=== PATIENT | female | born 1965 | race Caucasian/White ===

== ENCOUNTER 2019-10-30 16:30 | Outpatient (CLI) | payer OTHER, SELFPAY ==
--- NOTE | ~2019-10-30 | MM_ITS ---
EXAMINATION: MM screening mario BI w nyasia HISTORY: Screening mammogram TECHNIQUE: Craniocaudal and mediolateral oblique 3-D tomosynthesis images were obtained and synthetic 2-D images were generated. CAD analysis was submitted and interpreted. COMPARISON: 09/20/2018 BREAST PARENCHYMAL COMPOSITION: There are scattered areas of fibroglandular density. FINDINGS: There is no evidence of suspicious mass, calcification, or architectural distortion to sugg est malignancy in either breast. There has been no suspicious interval change. IMPRESSION: 1. No mammographic evidence of malignancy. 2. Recommend routine screening mammography in one year. BI-RADS Category 1: Negative Reviewed, dictated and finalized at location A.
== END 2019-10-30 16:31 | disposition home or self-care (01) ==
LOC: ANHIMG 16:33
PROVIDERS: PCP Family Medicine; Visit Provider Family Medicine
DX: Z12.31 Encounter for screening mammogram for malignant neoplasm of breast (principal)
CPT/HCPCS: 77063; 77067

== ENCOUNTER 2023-06-22 12:03 | Emergency (ER) | payer OTHER, SELFPAY ==
[2023-06-22 12:16] VITALS: BP 120/67; PULSE 93; RESP 18; TEMP 36.9; O2SAT 100
--- NOTE | 2023-06-22 12:20 | ED.GENADULT ---
HPI - General Adult General Chief complaint: Upper Respiratory Infection Stated complaint: Sore Throat/Sinus Source: patient, RN notes reviewed and old records reviewed Mode of arrival: ambulatory Limitations: no limitations History of Present Illness HPI narrative: 58-year-old female presents to [facility] with complaints of sore throat, and nasal congestion this started yesterday. Patient is not taking anything for symptoms. Patient denies any other complaints. Related Data Home Medications Medication Instructions Recorded Confirmed atorvastatin 40 mg tablet 40 mg PO DAILY 03/02/19 06/22/23 docusate sodium 100 mg capsule 100 mg PO DAILY 03/02/19 06/22/23 (Stool Softener) gabapentin 300 mg capsule 600 mg PO HS 03/02/19 06/22/23 glipizide 10 mg tablet 10 mg PO BID 03/02/19 06/22/23 losartan 25 mg tablet 25 mg PO DAILY 03/02/19 06/22/23 metformin 500 mg tablet 1,000 mg PO BID 03/02/19 06/22/23 diazepam 10 mg tablet 10 mg PO QID PRN Anxiety 03/05/19 06/22/23 quetiapine 300 mg tablet 300 mg PO DAILY 03/05/19 06/22/23 venlafaxine 37.5 mg tablet 37.5 mg PO DAILY 03/05/19 06/22/23 venlafaxine 75 mg tablet 75 mg PO DAILY 03/05/19 06/22/23 phentermine 37.5 mg tablet 37.5 mg PO DAILY 04/03/19 06/22/23 empagliflozin 25 mg tablet 25 mg PO DAILY 06/22/23 06/22/23 (Jardiance) empagliflozin 25 mg tablet mg 06/22/23 (Jardiance) Allergies Allergy/AdvReac Type Severity Reaction Status Date / Time codeine Allergy Mild Nausea and Verified 06/22/23 12:06 Vomiting Review of Systems Constitutional: Constitutional: Reports no additional constitutional complaints, Denies body ache(s), Denies chills, Denies fatigue, Denies fever(s) and Denies headache(s) Eyes: Eyes: Reports no additional eye complaints and Denies blurry vision ENT: Reports system reviewed and no additional complaints, except as documented, Denies vertigo, Denies dizziness, Denies ear discharge, Denies otalgia, Denies facial pain, Denies headache(s), Reports nasal congestion, Denies nasal discharge, Denies sinus pain, Denies sinus pressure and Reports sore throat Cardiovascular: Cardiovascular: Reports no additional cardiovascular complaints, Denies chest pain, Denies chest pain at rest, Denies rapid heart rate and Denies dyspnea Respiratory: Respiratory: Reports no additional respiratory complaints, Denies chest congestion, Denies cough, Denies pain on inspiration, Denies pain with cough and Denies dyspnea Gastrointestinal: Gastrointestinal: Denies abdominal pain, Denies diarrhea, Denies nausea and Denies vomiting Integumentary/Breasts: Skin/Breast: Denies rash Neurologic: Reports system reviewed and no additional complaints, except as documented, Denies vertigo, Denies dizziness and Denies headache(s) Endocrine: Endocrine: Denies fatigue PMFSH Past Medical History Medical History Bipolar 1 disorder Chronic constipation Diabetes Hyperlipidemia Hypertension Peripheral neuropathy Surgical History Surgical History History of cataract surgery History of cholecystectomy History of esophagogastroduodenoscopy (EGD) History of incisional hernia repair History of rhinoplasty Hx of esophagogastroduodenoscopy Previous section Family History Family History Mother Oral cancer Social History Social History Smoking packs per day: 1 Smoking cigarettes per day: 20.0 Years smoked: 15 Smoking pack-years: 15.00 Smoking status: Former smoker Tobacco type: cigarettes Alcohol intake: never Substance use: current Substance use type: marijuana Living arrangements: with family Gender identity (if verbalized by the patient): Female Comments At the time of my signature, I reviewed and agree with the nursing pas
== END 2023-06-22 12:30 | disposition home or self-care (01) ==
PROVIDERS: Emergency Provider Registered Nurse; PCP Family Medicine
DX: J02.0 Streptococcal pharyngitis (principal); Z20.822 Contact with and (suspected) exposure to COVID-19; F12.90 Cannabis use, unspecified, uncomplicated; E78.5 Hyperlipidemia, unspecified; I10 Essential (primary) hypertension; E11.42 Type 2 diabetes mellitus with diabetic polyneuropathy; F31.9 Bipolar disorder, unspecified
CPT/HCPCS: 87426; 87804; 87880; 99213; G0463